=== PATIENT | female | born 2000 | race Caucasian/White ===

== ENCOUNTER 2022-07-20 16:28 | Emergency (ER) | payer BC ==
[~2022-07-20] VITALS: Ht 154.9 cm; Wt 55.7 kg
[2022-07-20 17:07] LABS: BASOPHILS % (AUTO) 0.1 % (0-1); EOSINOPHILS % (AUTO) 0 % (0-6); HEMATOCRIT 34.3 % (35.0-45.0); HEMOGLOBIN 10.9 g/dl (12.0-16.0); LYMPHOCYTES # (AUTO) 0.6 X10'3 (1.1-4.8); LYMPHOCYTES % (AUTO) 2.9 % (21-51); MEAN CORPUSCULAR HEMOGLOBIN 23.2 PG (27.0-31.0); MEAN CORPUSCULAR HGB CONC 31.7 g/dL (33.0-36.5); MEAN CORPUSCULAR VOLUME 73.2 FL (78-98); MEAN PLATELET VOLUME 7.4 FL (7.4-10.4); MONOCYTES # (AUTO) 0.5 X10'3 (0-0.9); MONOCYTES % (AUTO) 2.2 % (2-12); NEUTROPHILS % (AUTO) 94.8 % (42-75); PLATELET COUNT 385 X10'3 (140-440); RED BLOOD COUNT 4.69 X10'6 (4.20-5.60); RED CELL DISTRIBUTION WIDTH 15.8 % (11.5-14.5); WHITE BLOOD COUNT 22.1 X10'3 (4.5-11.0)
[2022-07-20 17:27] LABS: ALANINE AMINOTRANSFERASE 18 U/L (12-78); ALBUMIN 3.7 G/DL (3.4-5.0); ALKALINE PHOSPHATASE 70 IU/L (20-180); ANION GAP 12 (8-16); ASPARTATE AMINO TRANSFERASE 23 U/L (10-37); BILIRUBIN,TOTAL 0.6 MG/DL (0.1-1.0); BLOOD UREA NITROGEN 9 MG/DL (7-18); BUN/CREATININE RATIO 11.1 (6.6-38.0); CALCIUM 8.9 MG/DL (8.5-10.1); CHLORIDE 103 MMOL/L (99-107); CREATININE 0.81 MG/DL (0.40-0.90); GLUCOSE 104 MG/DL (70-104); LIPASE < 50 U/L (73-393); POTASSIUM 3.3 MMOL/L (3.5-5.1); SODIUM 137 MMOL/L (135-145); TOTAL CARBON DIOXIDE 21.8 MMOL/L (24-32); TOTAL PROTEIN 7.5 G/DL (6.4-8.2); eGFR 90 ML/MIN
[2022-07-20 17:38] LABS: URINE HCG NEGATIVE (NEG)
[2022-07-20] MEDS ORDERED: ondansetron/PF 4mg/2ml inj IV ONE (17:40)
[2022-07-20] MEDS ORDERED: normal saline 1000ml 1,000 ML IV ONE (17:40)
[2022-07-20 17:46] LABS: CLARITY,URINE CLEAR (Clear); COLOR,URINE YELLOW (Yellow); GLUCOSE, URINE NEGATIVE (Neg); KETONES,URINE NEGATIVE (Neg); LEUKOCYTE ESTERASE ,URINE NEGATIVE (Neg); NITRITES, URINE NEGATIVE (Neg); OCCULT BLOOD,URINE MODERATE (Neg); PH,URINE 6.5 (4.8-8.0); PROTEIN,URINE NEGATIVE (Neg); UROBILINOGEN,URINE 0.2 E.U/dL (0.2-1.0)
[2022-07-20 17:47] LABS: UA COLLECTION TYPE CLN CATCH MIDSTREAM
[2022-07-20 17:58] LABS: BACTERIA,URINE FEW /HPF (Neg); SQUAMOUS EPITHELIAL CELL,UR FEW /LPF (FEW); WBC,URINE 0-4 /HPF (0-4)
[2022-07-20 17:59] LABS: MUCUS STRANDS FEW /LPF (Neg)
[2022-07-20] MEDS ORDERED: morphine 4 MG/ML inj SYRINge IV ONE (18:00)
[2022-07-20] MEDS ORDERED: iohexol 300mg/ml 100ml inj. ONE (18:02)
[2022-07-20] MEDS ORDERED: CefTRIAXone/D5W-Rocephin 1gm 50 ML IV ONE (18:05)
[2022-07-20] MEDS ORDERED: doxycycline inj 100 MG in normal saline 100ml IV soln 100 ML IV STA (19:03)
[2022-07-20] MEDS ORDERED: cefoxitin sod inj 2,000 MG in normal saline 100ml IV soln 100 ML IV ONE (19:05)
[2022-07-20] MEDS ORDERED: acetaminophen 325mg tablet PO ONE (20:15)
[2022-07-20 20:33] LABS: BASOPHILS % (AUTO) 0.1 % (0-1); EOSINOPHILS % (AUTO) 0 % (0-6); HEMATOCRIT 32.4 % (35.0-45.0); HEMOGLOBIN 10.3 g/dl (12.0-16.0); LYMPHOCYTES # (AUTO) 0.8 X10'3 (1.1-4.8); LYMPHOCYTES % (AUTO) 3.5 % (21-51); MEAN CORPUSCULAR HEMOGLOBIN 23.3 PG (27.0-31.0); MEAN CORPUSCULAR HGB CONC 31.8 g/dL (33.0-36.5); MEAN CORPUSCULAR VOLUME 73.3 FL (78-98); MEAN PLATELET VOLUME 7.3 FL (7.4-10.4); MONOCYTES # (AUTO) 0.6 X10'3 (0-0.9); MONOCYTES % (AUTO) 2.7 % (2-12); NEUTROPHILS # (AUTO) 20.4 X10'3 (1.8-7.7); NEUTROPHILS % (AUTO) 93.7 % (42-75); PLATELET COUNT 325 X10'3 (140-440); RED BLOOD COUNT 4.41 X10'6 (4.20-5.60); RED CELL DISTRIBUTION WIDTH 15.8 % (11.5-14.5); WHITE BLOOD COUNT 21.8 X10'3 (4.5-11.0)
[2022-07-20] MEDS ORDERED: morphine 2 MG/ML inj. syringe IV ONE (23:10)
[2022-07-21] MEDS ORDERED: metroNIDAZOLE-Flagyl 500mg/NS 100 ML IV STA (00:43)
[2022-07-21] MEDS ORDERED: NO HOME MEDS (01:37)
[2022-07-21] MEDS ORDERED: ketorolac trometh. 30mg/ml inj. IV ONE (03:05)
[2022-07-21] MEDS ORDERED: acetaminophen 325mg tablet PO ONE (03:05)
[2022-07-21] MEDS ORDERED: normal saline 1000ml 1,000 ML IV ONE (03:10)
--- NOTE | 2022-07-21 05:40 | NUR ---
Notified Dr Briscoe of cont hypotension -, no new orders rec. Pt is A&Ox4, wakes easily and is able to amb to and from bathroom with only stand by assist. Denies dizziness/lightheadedness. Mother at bedside.
--- NOTE | 2022-07-21 05:42 | NUR ---
Pt accepted at [facility] in 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
[2022-07-21] MEDS ORDERED: doxycycline inj 100 MG in normal saline 100ml IV soln 100 ML IV ONE (07:30)
--- NOTE | 2022-07-21 07:57 | NUR ---
Dr. Joseph made aware about k 3.3- no replaced yesterday, is aware,no new orders at this time.
--- NOTE | 2022-07-21 09:11 | NUR ---
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 [facility] CALLED @ 0900. 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 RN AND MADE AWARE.
[2022-07-21 09:50] VITALS: BP 94/60
--- NOTE | 2022-07-21 10:40 | NUR ---
Patient only received vibramycin 50mg iv per Dr. Joseph,Transport/ALS at bedside, father present at bedside during transport.SBAR report given to Araseli JARAMILLO at [facility].
== END 2022-07-21 10:46 | disposition short-term general hospital (02) ==
LOC: ER 16:30
DX: N70.92 Oophoritis, unspecified (principal); Z20.822 Contact with and (suspected) exposure to COVID-19; Z88.0 Allergy status to penicillin; Z88.5 Allergy status to narcotic agent
CPT/HCPCS: 36415; 71045; 74177; 76830; 76856; 80053; 81001; 81025; 83605; 83690; 84145; 85025; 87040; 87491; 87502; 87503; 87591; 87635; 93976; 96361; 96365; 96366; 96367; 96368; 96375; 96376; 99285; C9803; J0694; J1885; J2270; J2405; J3490; J7030; Q9967

== ENCOUNTER 2025-04-14 01:41 | Emergency (ER) | payer BC ==
[~2025-04-14] VITALS: Ht 160 cm; Wt 62.7 kg
[~2025-04-14 01:41] MED LIST: NO HOME MEDS
--- NOTE | 2025-04-14 01:46 | Physician Documentation ---
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 While she was in the how she started to have an allergic-type reaction. She reports having congestion and a stuffy nose, and having difficulty breathing. No severe wheezing, nausea, vomiting, or mouth or throat swelling. Her main request is for an antihistamine. 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 HEENT: Atraumatic, oropharynx is moist Heart: Regular rate and rhythm, normal-appearing peripheral perfusion Lungs: No wheezing, normal oxygen saturation on room air Skin: No hives Neuro: Alert and oriented Psychiatric: Calm and cooperative with exam Progress Results/Orders Results/Orders Completed Orders - CHAVA PANG MD Loratadine Tablet (Claritin Tablet) (04/14/25 01:45) Medications Received in ER Medications (Trade) Dose Ordered Sig/Dwayne Route PRN Reason Start Time Stop Time Status Last Admin Dose Admin (Claritin tablet) 10 mg ONCE ONCE PO 04/14/25 01:45 04/14/25 01:46 DC 04/14/25 01:57 10 MG Vital Signs 04/14/25 01:54 Temp 97.8 Pulse 86 Resp 16 B/P (MAP) 144/97 Pulse Ox 99 Medical Decision Making Additional information obtaine: N/A Findings na Differential Dx:Considerations: Include: Anaphylaxis, Angioedema, Bronchospasm, Urticaria Differential Diagnosis The patient presents with mild allergies after cat exposure. She is otherwise well-appearing. She will be given a dose of Claritin so she can go back to work. Departure Time of Disposition: 01:46 Disposition: 01 HOME / SELF CARE / HOMELESS Impression: Primary Impression: Airborne cat allergy Condition: Stable Referrals: NO PRIMARY CARE PROVIDER (PCP) Education Educated: Patient Educated regarding: diagnosis, need for follow up Signature Scribe Signature: na Attestation: CHAVA Fortune MD Apr 14, 2025 01:46
[2025-04-14 01:54] VITALS: BP 144/97; PULSE 86; RESP 16; TEMP 97.8; O2SAT 99
== END 2025-04-14 02:03 | disposition home or self-care (01) ==
LOC: ER 01:42
DX: J30.81 Allergic rhinitis due to animal (cat) (dog) hair and dander (principal); Z88.0 Allergy status to penicillin; Z88.8 Allergy status to other drugs, medicaments and biological substances
CPT/HCPCS: 99282